=== PATIENT | female | born 2000 | race Caucasian/White ===

== ENCOUNTER → 2023-01-30 | Outpatient (CLI) | payer OTHER, SELFPAY ==
[2023-01-30 10:02] LABS: Hemoglobin 12.9 g/dL (12.0-15.0); Mean Corp Hgb Conc 33.1 g/dL (32-36); Mean Corpuscular Hgb 29.8 pg (27.0-32.0); Mean Corpuscular Volume 90.1 fL (81-99); Platelet Count 224 K/mm3 (150-450); RBC Distribution Width CV 11.9 % (11.6-14.6); Red Blood Count 4.33 M/mm3 (4.2-5.4); White Blood Count 4.8 K/mm3 (4.4-11.0)
[2023-01-30 10:15] LABS: hCG Titer Quant., Serum < 1 mIU/mL (1-3)
[2023-01-30 10:19] LABS: Estradiol 16.5 pg/mL; Follicle Stimulating Hormone 7.2 mIU/mL; Luteinizing Hormone 11.6 mIU/mL; Prolactin 11.6 ng/mL; Thyroid Stim Hormone (TSH) 2.87 uIU/mL (0.358-3.74)
== END | disposition home or self-care (01) ==
LOC: WOBLAB 09:07
PROVIDERS: Visit Provider Obstetrics & Gynecology
DX: N93.9 Abnormal uterine and vaginal bleeding, unspecified (principal)
CPT/HCPCS: 36415; 82670; 83001; 83002; 84146; 84439; 84443; 84702; 85027